=== PATIENT | female | born 1975 | race Caucasian/White ===

== ENCOUNTER 2018-07-07 12:59 | Emergency (ER) | payer BC ==
[~2018-07-07] VITALS: Ht 165.1 cm; Wt 56.8 kg
--- NOTE | 2018-07-07 13:07 | ERD ---
ER Documentation Chief Complaint Chief Complaint ROS All systems reviewed and are negative except as per history of present illness. Physical Exam Physical Exam Const: No acute distress Head: Atraumatic Eyes: Normal Conjunctiva ENT: Normal External Ears, Nose and Mouth. Neck: Full range of motion. No meningismus. Resp: Clear to auscultation bilaterally Cardio: Regular rate and rhythm, no murmurs Abd: Soft, non tender, non distended. Normal bowel sounds Skin: No petechiae or rashes Back: No midline or flank tenderness Ext: No cyanosis, or edema Neur: Awake and alert Psych: Normal Mood and Affect SARAH GUTIÉRREZ MD Jul 07, 2018 13:07
[2018-07-07] MEDS ORDERED: ASPIRIN 81 MG TAB PO STA (13:08)
[2018-07-07 14:14] VITALS: Ht 165.1 cm; Wt 56.8 kg
--- NOTE | 2018-07-07 14:28 | ERD ---
ER Documentation Chief Complaint Chief Complaint Code Green for chest pains HPI Patient is a 42-year-old female with history of previous coronary artery dissection who presents with chest pain. The patient started with symptoms 2 ho urs ago. 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 She felt shortness of breath and chest pain which she describes as a squeezing. She had nausea and dizziness. She feels better now. She has had no treatment as of yet. She does have a primary doctor and a sports statistician. ROS All systems reviewed and are negative except as per history of present illness. Allergies Allergies: Coded Allergies: sulfamethoxazole (Verified Allergy, Unknown, 07/07/18) trimethoprim (Verified Allergy, Unknown, 07/07/18) PMhx/Soc History of Surgery: No Hx Cardiac Disorders: Yes (spontaneous aortic dissection) Hx Miscellaneous Medical Probl: Yes (hypothyroidism) Hx Alcohol Use: No Hx Substance Use: No Hx Tobacco Use: No Smoking Status: Never smoker FmHx Family History: coronary disease Physical Exam Vitals Vital Signs Date Temp Pulse Resp B/P (MAP) Pulse Ox O2 O2 Flow FiO2 Time Delivery Rate 07/07/18 98.9 112 22 148/95 99 14:14 (112) Physical Exam Const: No acute distress Head: Atraumatic Eyes: Normal Conjunctiva ENT: Normal External Ears, Nose and Mouth. Neck: Full range of motion. No meningismus. Resp: Clear to auscultation bilaterally Cardio: Regular rate and rhythm, no murmurs Abd: Soft, non tender, non distended. Normal bowel sounds Skin: No petechiae or rashes Back: No midline or flank tenderness Ext: No cyanosis, or edema Neur: Awake and alert Psych: Normal Mood and Affect Result Diagram: 07/07/18 1331 07/07/18 1331 Results 24 hrs Laboratory Tests Test 07/07/18 13:31 White Blood Count 5.7 10^3/ul Red Blood Count 4.90 10^6/ul Hemoglobin 14.2 g/dl Hematocrit 42.1 % Mean Corpuscular Volume 85.9 fl Mean Corpuscular Hemoglobin 29.0 pg Mean Corpuscular Hemoglobin Concent 33.7 g/dl Red Cell Distribution Width 13.4 % Platelet Count 279 10^3/UL Mean Platelet Volume 11.2 fl Immature Granulocytes % 0.300 % Neutrophils % 78.7 % Lymphocytes % 15.5 % Monocytes % 4.0 % Eosinophils % 1.0 % Basophils % 0.5 % Nucleated Red Blood Cells % 0.0 /100WBC Immature Granulocytes # 0.020 10^3/ul Neutrophils # 4.5 10^3/ul Lymphocytes # 0.9 10^3/ul Monocytes # 0.2 10^3/ul Eosinophils # 0.1 10^3/ul Basophils # 0.0 10^3/ul Nucleated Red Blood Cells # 0.0 10^3/ul Sodium Level 143 mmol/L Potassium Level 4.1 mmol/L Chloride Level 107 mmol/L Carbon Dioxide Level 23 mmol/L Anion Gap 13 Blood Urea Nitrogen 10 mg/dl Creatinine 0.63 mg/dl Est Glomerular Filtrat Rate mL/min > 60 mL/min Glucose Level 103 mg/dl Calcium Level 9.6 mg/dl Creatine Kinase 176 IU/L Creatine Kinase Index 0.1 Creatinine Kinase MB (Mass) < 0.22 ng/ml Troponin I < 0.012 ng/ml Current Medications Medications Dose Sig/Lisandra Start Time Status Last (Trade) Ordered Route PRN Stop Time Admin Dose Reason Admin Aspirin 162 mg ONCE STAT 07/07/18 DC 07/07/18 (Aspirin) PO 13:08 13:19 07/07/18 13:10 Procedures/MDM EKG #1 read by me: Rate/Rhythm: Regular rate and rhythm at a normal rate Intervals: Normal Impression: No evidence of ischemia or arrhythmia EKG #2 read by me: Rate/Rhythm: Regular rate and rhythm at a normal rate Intervals: Normal Impression: No evidence of ischemia or arrhythmia Chest x-ray negative per radiology. Patient is a 42-year-old female who presents with chest pain. Initial troponin is negative. 2 EKGs were normal. Chest x-ray was negative. I discussed with the patient regarding admission versus outpatient management. She would prefer to be discharged at this time and I think this is reasonable given the fact that she does have a primary doctor and sports statistician to follow-up with closely. She can return for any worsening symptoms. At this point I doubt acute coronary syndrome, coronary artery dissection, pneumonia, pneumothorax, pulmonary emb olism, or aortic dissection. The patient will be discharged but will need to follow-up closely with her primary doctor and sports statistician within 24-48 hours. Departure Diagnosis: Primary Impression: Chest pain Chest pain type: unspecified Qualified Codes: R07.9 - Chest pain, unspecified Condition: Fair Patient Instructions: Chest Pain, Uncertain Cause Referrals: Your primary doctor Additional Instructions: Call your primary care doctor TOMORROW for an appointment during the next 1-2 days.See the doctor sooner or return here if your condition worsens before your appointment time. MAURA MARLEY MD Jul 07, 2018 14:28
[2018-07-07 14:57] VITALS: BP 121/67; PULSE 65; RESP 18
== END 2018-07-07 15:00 | disposition home or self-care (01) ==
LOC: E/R 12:59
DX: R07.9 Chest pain, unspecified (principal); E03.9 Hypothyroidism, unspecified
CPT/HCPCS: 36415; 71045; 80048; 82550; 82553; 84484; 85025; 93005